=== PATIENT | male | born 1990 | race Caucasian/White ===

== ENCOUNTER 2018-03-30 11:42 | Emergency (ER) | payer OTHER ==
[~2018-03-30] VITALS: Ht 180.3 cm; Wt 108.9 kg
[2018-03-30 12:24] LABS: URINE BILIRUBIN NEGATIVE (Negative); URINE BLOOD TRACE (Negative); URINE CLARITY CLEAR; URINE COLOR YELLOW; URINE GLUCOSE-RANDOM NEGATIVE (Negative); URINE KETONES NEGATIVE (Negative); URINE NITRITE-REFLEX NEGATIVE (Negative); URINE PROTEIN NEGATIVE (Negative); URINE UROBILINOGEN 0.2 E.U./dl (0.2-1.0)
[2018-03-30 12:25] LABS: URINE LEUKOCYTES-REFLEX 2+ (Negative)
[2018-03-30 12:31] LABS: SQUAMOUS NONE SEEN /LPF (0-3); URINE RBC 3-10 Few /HPF (0-2); URINE WBC-REFLEX >25 Many /HPF (0-5)
[2018-03-30 12:32] LABS: BACTERIA-REFLEX None Seen /HPF (None Seen); CASTS None Seen /LPF (None Seen); CRYSTALS None Seen /LPF (None Seen)
[2018-03-30 12:35] LABS: AMP/METHAMP POSITIVE (Negative); BARBITURATES Negative (Negative); BENZODIAZEPINES Negative (Negative); COCAINE Negative (Negative); METHADONE Negative (Negative); OPIATES Negative (Negative); PCP Negative (Negative); THC POSITIVE (Negative)
[2018-03-30 12:41] LABS: ABSOLUTE BASOPHILS 0.1 thou/uL (0.0-0.2); ABSOLUTE EOSINOPHILS 0.1 thou/uL (0.0-0.7); ABSOLUTE LYMPHOCYTES 1.9 thou/uL (0.8-5.3); ABSOLUTE MONOCYTES 0.7 thou/uL (0.0-1.2); ABSOLUTE NEUTROPHILS 5.2 thou/uL (1.6-8.1); BASOPHILS 0.8 %; EOSINOPHILS 1.4 %; HEMATOCRIT 45.1 % (42.0-52.0); HEMOGLOBIN 15.2 gm/dL (14.0-18.0); LYMPHOCYTES 23.9 %; MCH 32.3 pg (26.0-34.0); MCHC 33.6 g/dL (28.0-37.0); MONOCYTES 8.6 %; NUCLEATED RBCS 0 /100WBC; PLATELET COUNT* 155 thou/uL (150-400); POLYS 65.3 %; RDW-CV 13.9 % (10.5-14.5)
[2018-03-30 12:46] LABS: CALCIUM 8.3 mg/dL (8.5-10.1); CREATININE 0.8 mg/dL (0.6-1.3)
[2018-03-30 12:51] LABS: ALBUMIN 3.4 g/dL (3.4-5.0); SALICYLATE 3.3 mg/dL (2.8-20.0); TOTAL BILIRUBIN 0.2 mg/dL (<0.1-1.0); TOTAL PROTEIN 6.6 g/dL (6.4-8.2)
[2018-03-30 12:52] LABS: ACETAMINOPHEN < 2 ug/mL (10-30); ALCOHOL < 10 mg/dL (<10)
[2018-03-30] MEDS ORDERED: CIPRO500 MG PO (19:06)
[2018-03-30] MEDS ORDERED: DOXYCYCLINE 10100 MG PO ×2 (19:07→19:09)
[2018-03-30 19:36] VITALS: BP 136/78
== END 2018-03-30 19:30 | disposition home or self-care (01) ==
LOC: M.ERS 11:42
PROVIDERS: Emergency Medicine Emergency Medical Services
DX: F32.9 Major depressive disorder, single episode, unspecified (principal); N39.0 Urinary tract infection, site not specified; F12.10 Cannabis abuse, uncomplicated; Z88.0 Allergy status to penicillin; Z88.1 Allergy status to other antibiotic agents